=== PATIENT | female | born 1960 | race Caucasian/White ===

== ENCOUNTER 2018-09-09 10:45 | Observation (INO) | payer OTHER ==
--- NOTE | 2018-09-09 11:09 | CPEKG ---
Test Reason : OPEN Blood Pressure : / mmHG Vent. Rate : 056 BPM Atrial Rate : 054 BPM P-R Int : 166 ms QRS Dur : 082 ms QT Int : 463 ms P-R-T Axes : 055 030 031 degrees QTc Int : 447 ms Sinus rhythm Confirmed by Miguelangel Guerrier ([id number]) on 09/09/2018 11:09:19 AM Referred By: Confirmed By:Miguelangel Guerrier
--- NOTE | 2018-09-09 11:10 | EDPHY ---
H & P Stated Complaint: chest pressure - Personal History Current Tetanus/Diphtheria Vaccine: No Current Tetanus Diphtheria and Acellular Pertussis (TDAP): No - Medical/Surgical History Hx Asthma: No Hx Chronic Respiratory Disease: No Hx Diabetes: No Hx Cardiac Disease: No Hx Renal Disease: No Hx Cirrhosis: No Hx Alcoholism: No Hx HIV/AIDS: No Hx Splenectomy or Spleen Trauma: No Other PMH: HTN, osteoarthritis - Social History Smoking Status: Former smoker Time Seen by Provider: 09/09/18 11:00 HPI/ROS: CHIEF COMPLAINT: Chest pressure HISTORY OF PRESENT ILLNESS: 58-year-old female via private vehicle complaining of chest discomfort and pressure as well as dyspnea since 2:00 a.m. Pain continues now albeit less pronounced. Associated with dyspnea. No syncope or near syncope. No nausea. No diaphoresis. No peripheral edema or discoloration. 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 Nonsmoker. No drug use. No cocaine use. FAMILY HISTORY:Father age 56 of SC, mother with SC history, sister with multiple MIs starting at age 32 PHYSICAL EXAM (Prior to examination, patient consented to physical exam, hands were washed and my usual and customary physical exam procedures followed) 1) GENERAL: Well-developed, well-nourished, alert and oriented. Appears to be in no acute distress. 2) HEAD: Normocephalic, atraumatic 3) HEENT: Pupils equal, round, reactive to light bilaterally. Sclera anicteric. 4) NECK: Full range of motion, no meningeal signs. No carotid bruit 5) LUNGS: Clear auscultation bilaterally, no wheezes, no rhonchi, no retractions. 6) HEART: Regular rate and rhythm, no murmur, no heave, no gallop. 7) ABDOMEN: No guarding, no rebound, no focal tenderness, negative McBurney's, negative Dee's, negative Rovsing's, negative peritoneal sign, 8) MUSCULOSKELETAL: Moving all extremities, no focal areas of tenderness, no obvious trauma. No peripheral edema or discoloration. Negative Homans no palpable cord 9) BACK: No CVA tenderness, no midline vertebral tenderness, no fluctuance, no step-off, no obvious trauma, no visual or palpable abnormality. 10) SKIN: No rash, no petechiae. 11) Psychiatric: Patient is oriented X 3, there is no agitation. DIFFERENTIAL DIAGNOSIS: In no particular order, including but not limited to myocardial ischemia, pulmonary embolus, chest wall pain, pleural inflammation and pulmonary infectious causes. (Luciano Samuel) Constitutional: Initial Vital Signs Temperature (C) 36.7 C 09/09/18 10:51 Heart Rate 63 09/09/18 10:51 Respiratory Rate 16 09/09/18 10:51 Blood Pressure 183/80 H 09/09/18 10:51 O2 Sat (%) 96 09/09/18 10:51 O2 Delivery Mode Room Air Allergies/Adverse Reactions: aspirin Allergy (Verified 09/09/18 11:25) Other-Enter Comments Home Medications: Medication Instructions Recorded Cholecalciferol Vit D3 [Vitamin D3 1,000 units PO DAILY 09/09/18 (*)] Herbals/Supplements -Info Only 1 ea PO DAILY 09/09/18 Ibuprofen [Motrin (*)] 200 - 600 mg PO DAILY PRN 09/09/18 Levothyroxine [Synthroid 75 mcg 75 mcg PO DAILY06 09/09/18 (*)] Losartan Potassium [Cozaar 50 mg 50 mg PO DAILY 09/09/18 (*)] Multivitamins [Multivitamin (*)] 1 each PO DAILY 09/09/18 Medical Decision Making - Diagnostics Imaging Results: Imaging Impressions Chest X-Ray 09/09/18 11:00 Impression: Nothing acute identified. There is evidence of atherosclerosis. ED Course/Re-evaluation: Patient was re-evaluated with serial examinations. Negative troponin, normal sinus EKG. Significant family history of cardiac disease including sister with 1st SC in her 30s, father of SC in early to mid 50s. Family history is concerning. Recommended admission to hospitalist for cardiac evaluation and rule out. Patient is agreeable with this. Patient also seen exam by Dr. Miguelangel Guerrier. 11:19 a.m.: Consultation with hospitalist, admit to Dr Rivero (Luciano Samuel Debbie) Differential Diagnosis: Differential diagnosis considered for chest pain including but not limited to myocardial ischemia, aortic dissection, pericarditis, pulmonary embolus, chest wall pain, pleural inflammation and pulmonary infectious causes. (Miguelangel Guerrier) Other Provider: PHYSICIAN DOCUMENTATION: The patient was evaluated and managed by the Physician Electron Gun Inspector and myself. I have reviewed the chart and agree with the findings and plan of care as documented. In addition, I examined the patient myself at 1130. History confirmed as chest pain with family history of coronary disease including sister with SC in her 30s. Physical findings as follows: No peripheral edema. Initial EKG and troponin are negative, admission for risk stratification specially given significant family history. No aspirin, listed as allergy. I am the secondary supervising physician. (Miguelangel Guerrier) - Data Points Laboratory Results: Laboratory Results 09/09/18 11:13 09/09/18 11:13 09/09/18 09/09/18 09/09/18 11:17 11:13 11:13 WBC RBC Hgb Hct MCV MCH MCHC RDW Plt Count MPV Neut % (Auto) Lymph % (Auto) Lewis % (Auto) Eos % (Auto) Baso % (Auto) Nucleat RBC Rel Count Absolute Neuts (auto) Absolute Lymphs (auto) Absolute Monos (auto) Absolute Eos (auto) Absolute Basos (auto) Absolute Nucleated RBC Immature Gran % Immature Gran # D-Dimer < 0.27 ug/mLFEU ug/mLFEU (0.00-0.50) Sodium Potassium Chloride Carbon Dioxide Anion Gap BUN Creatinine Estimated GFR Glucose Calcium POC Troponin I 0.00 ng/mL ng/mL (0.00-0.08) Triglycerides 109 mg/dL mg/dL (35-135) Cholesterol 192 mg/dL mg/dL (140-220) Cholesterol Risk Factr 0.4 (0.2-1.0) LDL Cholesterol, Calc 68 mg/dL L mg/dL (80-100) LDL Risk Factor 0.4 (0.2-1.0) VLDL Cholesterol 22 mg/dL mg/dL (8-25) Non-HDL Cholesterol 90 mg/dL mg/dL (90-129) HDL Cholesterol 102 mg/dL H mg/dL (40-85) LDL/HDL Ratio 0.67 RATIO L RATIO (1.00-3.22) Cholesterol/HDL Ratio 1.88 RATIO RATIO (1.00-4.44) 09/09/18 09/09/18 11:13 11:13 WBC 6.37 10^3/uL 10^3/uL (3.80-9.50) RBC 4.75 10^6/uL 10^6/uL (4.18-5.33) Hgb 13.6 g/dL g/dL (12.6-16.3) Hct 40.1 % % (38.0-47.0) MCV 84.4 fL fL (81.5-99.8) MCH 28.6 pg pg (27.9-34.1) MCHC 33.9 g/dL g/dL (32.4-36.7) RDW 13.9 % % (11.5-15.2) Plt Count 232 10^3/uL 10^3/uL (150-400) MPV 11.5 fL fL (8.7-11.7) Neut % (Auto) 48.5 % % (39.3-74.2) Lymph % (Auto) 40.8 % % (15.0-45.0) Lewis % (Auto) 9.4 % % (4.5-13.0) Eos % (Auto) 0.8 % % (0.6-7.6) Baso % (Auto) 0.3 % % (0.3-1.7) Nucleat RBC Rel Count 0.0 % % (0.0-0.2) Absolute Neuts (auto) 3.09 10^3/uL 10^3/uL (1.70-6.50) Absolute Lymphs (auto) 2.60 10^3/uL 10^3/uL (1.00-3.00) Absolute Monos (auto) 0.60 10^3/uL 10^3/uL (0.30-0.80) Absolute Eos (auto) 0.05 10^3/uL 10^3/uL (0.03-0.40) Absolute Basos (auto) 0.02 10^3/uL 10^3/uL (0.02-0.10) Absolute Nucleated RBC 0.00 10^3/uL 10^3/uL (0-0.01) Immature Gran % 0.2 % % (0.0-1.1) Immature Gran # 0.01 10^3/uL 10^3/uL (0.00-0.10) D-Dimer Sodium 140 mEq/L mEq/L (135-145) Potassium 4.1 mEq/L mEq/L (3.3-5.0) Chloride 110 mEq/L mEq/L (97-110) Carbon Dioxide 20 mEq/l L mEq/l (22-31) Anion Gap 10 mEq/L mEq/L (6-14) BUN 18 mg/dL mg/dL (7-23) Creatinine 0.9 mg/dL mg/dL (0.6-1.0) Estimated GFR > 60 Glucose 99 mg/dL mg/dL (70-100) Calcium 9.8 mg/dL mg/dL (8.5-10.4) POC Troponin I Triglycerides Cholesterol Cholesterol Risk Factr LDL Cholesterol, Calc LDL Risk Factor VLDL Cholesterol Non-HDL Cholesterol HDL Cholesterol LDL/HDL Ratio Cholesterol/HDL Ratio Medications Given: Nitroglycerin (Nitrostat) 0.4 mg SL Q5M PRN PRN Reason: Chest Pain Stop: 03/08/19 13:37 Last Admin: 09/09/18 13:44 Dose: 0.4 mg Discontinued Medications Morphine Sulfate (Morphine) 4 mg IVP EDNOW ONE Stop: 09/09/18 12:16 Last Admin: 09/09/18 12:22 Dose: 4 mg Point of Care Test Results: Chemistry 09/09/18 11:17 POC Troponin I 0.00 ng/mL ng/mL (0.00-0.08) Departure - Departure Disposition: [facility] Inpatient Acute Clinical Impression: Chest pain Qualifiers: Chest pain type: unspecified Qualified Code(s): R07.9 - Chest pain, unspecified Condition: Good
[2018-09-09 11:23] LABS: PLATELET COUNT 232 10^3/uL (150-400)
[2018-09-09] MEDS ORDERED: NITROGLYCERIN 0.4 MG BTL SL PRN (13:38)
[2018-09-09] MEDS ORDERED: KETOROLAC 30 MG/1 ML SDV IVP PRN (13:48)
--- NOTE | 2018-09-09 13:52 | PDGENHP ---
History and Physical - Chief Complaint Chest pain - History of Present Illness 58 y/o female with history of HTN, OA, and hypothyroidism presents with mid- sternal chest pressure that radiates to the neck. She has not felt the sensation before and is concerned considering her family history is significant for MIs, CAD, and valve disorders. She describes the pressure as an uncomfortable "fluttering" feeling that woke her from her sleep this morning around 2:00am. Her sister, who has had MIs and stent placements, urged her to go to the ER. Denies SOB, N/V, numbness/tingling, vision changes, headache, weakness. She endorses constant chest pressure with an intensity of 3/10, nothing alleviates nor aggravates it. 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 Past Medical/Surgical History 1. HTN 2. OA 3. Hypothyroidism 4. Cervical CA (age 22) Family History 1. Father of ND at 56 y/o 2. Mother of valve problems/ND 3. Sister multiple ND and stent placement 4. Brother with coronary disease/Pacemaker History Information - Allergies/Home Medication List Allergies/Adverse Reactions: aspirin Allergy (Verified 09/09/18 11:25) Other-Enter Comments Home Medications: Cholecalciferol Vit D3 [Vitamin D3 (*)] 1,000 units PO DAILY 09/09/18 [Last Taken Unknown] Herbals/Supplements -Info Only 1 ea PO DAILY 09/09/18 [Last Taken Unknown] Ibuprofen [Motrin (*)] 200 - 600 mg PO DAILY PRN 09/09/18 [Last Taken 09/08/18 21:00 600mg] Levothyroxine [Synthroid 75 mcg (*)] 75 mcg PO DAILY06 09/09/18 [Last Taken 06/19] Losartan Potassium [Cozaar 50 mg (*)] 50 mg PO DAILY 09/09/18 [Last Taken ] Multivitamins [Multivitamin (*)] 1 each PO DAILY 09/09/18 [Last Taken Unknown] I have personally reviewed and updated: family history, medical history, social history, surgical history Past Medical History: See HPI List - Surgical History Additional surgical history: See HPI list - Family History Additional family history: See HPI list - Social History Smoking Status: Former smoker (Smoked for 38 years at least a pack-2 packs/day; quit 10 years ago) Alcohol Use: Rarely Drug Use: None Additional social history: Lives in [facility] [place] with ; 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 ) EENMT: Reports: other (Bilateral neck discomfort) Cardiac: Reports: chest pain, lightheadedness Respiratory: Reports: no symptoms Gastrointestinal: Reports: no symptoms Genitourinary: Reports: no symptoms Muscolosketal: Reports: no symptoms Skin: Reports: no symptoms Neurological: Reports: anxiety (Anxious considering extensive cardiac history with family) Hematologic/Lymphatic: Reports: no symptoms Immunologic/Allergy: Reports: other (See allergy list. Aspirin is not a anaphylaxis reaction; causes her to have "the shakes.") Physical Exam Physical Exam: Lab data and Imaging reviewed: D-Dimer: Negative 1st Troponin: Negative EK ventricular BMP, SR CXR: NO acute changes. Temp Pulse Resp BP Pulse Ox 36.3 C 60 14 181/103 H 93 09/09/18 12:35 09/09/18 12:35 09/09/18 12:35 09/09/18 12:35 09/09/18 12:35 Constitutional: no apparent distress, appears nourished, not in pain Eyes: PERRL, anicteric sclera, EOMI Ears, Nose, Mouth, Throat: moist mucous membranes, hearing normal, ears appear normal, no oral mucosal ulcers Cardiovascular: regular rate and rhythym, no murmur, rub, or gallop, other ( Elevated blood pressure), No edema Peripheral Pulses: 2+: dorsalis-pedis (R) (Radial 2+), dorsalis-pedis (L) ( Radial 2+) Respiratory: no respiratory distress, no rales or rhonchi, clear to auscultation Gastrointestinal: normoactive bowel sounds, soft, non-tender abdomen, no palpable masses Genitourinary: no bladder fullness, no bladder tenderness Skin: warm, normal color, no rashes or abrasions, no fluctuance, no induration, No mottled Musculoskeletal: full muscle strength, no muscle tenderness, normal joint ROM, no joint effusions Neurologic: AAOx3, sensation intact bilaterally, CN II-XII Intact Psychiatric: interacting appropriately, not anxious, not encephalopathic, thought process linear Lymph, Heme, Immunologic: no cervical LAD, no supraclavicular LAD Lab Data & Imaging Review 09/09/18 11:13 09/09/18 11:13 WBC 6.37 10^3/uL (3.80-9.50) 09/09/18 11:13 RBC 4.75 10^6/uL (4.18-5.33) 09/09/18 11:13 Hgb 13.6 g/dL (12.6-16.3) 09/09/18 11:13 Hct 40.1 % (38.0-47.0) 09/09/18 11:13 MCV 84.4 fL (81.5-99.8) 09/09/18 11:13 MCH 28.6 pg (27.9-34.1) 09/09/18 11:13 MCHC 33.9 g/dL (32.4-36.7) 09/09/18 11:13 RDW 13.9 % (11.5-15.2) 09/09/18 11:13 Plt Count 232 10^3/uL (150-400) 09/09/18 11:13 MPV 11.5 fL (8.7-11.7) 09/09/18 11:13 Neut % (Auto) 48.5 % (39.3-74.2) 09/09/18 11:13 Lymph % (Auto) 40.8 % (15.0-45.0) 09/09/18 11:13 [place] % (Auto) 9.4 % (4.5-13.0) 09/09/18 11:13 Eos % (Auto) 0.8 % (0.6-7.6) 09/09/18 11:13 Baso % (Auto) 0.3 % (0.3-1.7) 09/09/18 11:13 Nucleat RBC Rel Count 0.0 % (0.0-0.2) 09/09/18 11:13 Absolute Neuts (auto) 3.09 10^3/uL (1.70-6.50) 09/09/18 11:13 Absolute Lymphs (auto) 2.60 10^3/uL (1.00-3.00) 09/09/18 11:13 Absolute Monos (auto) 0.60 10^3/uL (0.30-0.80) 09/09/18 11:13 Absolute Eos (auto) 0.05 10^3/uL (0.03-0.40) 09/09/18 11:13 Absolute Basos (auto) 0.02 10^3/uL (0.02-0.10) 09/09/18 11:13 Absolute Nucleated RBC 0.00 10^3/uL (0-0.01) 09/09/18 11:13 Immature Gran % 0.2 % (0.0-1.1) 09/09/18 11:13 Immature Gran # 0.01 10^3/uL (0.00-0.10) 09/09/18 11:13 D-Dimer < 0.27 ug/mLFEU (0.00-0.50) 09/09/18 11:13 Sodium 140 mEq/L (135-145) 09/09/18 11:13 Potassium 4.1 mEq/L (3.3-5.0) 09/09/18 11:13 Chloride 110 mEq/L (97-110) 09/09/18 11:13 Carbon Dioxide 20 mEq/l (22-31) L 09/09/18 11:13 Anion Gap 10 mEq/L (6-14) 09/09/18 11:13 BUN 18 mg/dL (7-23) 09/09/18 11:13 Creatinine 0.9 mg/dL (0.6-1.0) 09/09/18 11:13 Estimated GFR > 60 09/09/18 11:13 Glucose 99 mg/dL (70-100) 09/09/18 11:13 Calcium 9.8 mg/dL (8.5-10.4) 09/09/18 11:13 POC Troponin I 0.00 ng/mL (0.00-0.08) 09/09/18 11:17 Triglycerides 109 mg/dL (35-135) 09/09/18 11:13 Cholesterol 192 mg/dL (140-220) 09/09/18 11:13 Cholesterol Risk Factr 0.4 (0.2-1.0) 09/09/18 11:13 LDL Cholesterol, Calc 68 mg/dL (80-100) L 09/09/18 11:13 LDL Risk Factor 0.4 (0.2-1.0) 09/09/18 11:13 VLDL Cholesterol 22 mg/dL (8-25) 09/09/18 11:13 Non-HDL Cholesterol 90 mg/dL (90-129) 09/09/18 11:13 HDL Cholesterol 102 mg/dL (40-85) H 09/09/18 11:13 LDL/HDL Ratio 0.67 RATIO (1.00-3.22) L 09/09/18 11:13 Cholesterol/HDL Ratio 1.88 RATIO (1.00-4.44) 09/09/18 11:13 Visualized and Interpreted Chest x-ray results: Yes Chest X-Ray results: no infiltrate, normal Visualized and Interpreted EKG results: Yes EKG Interpretation: Positive for: normal sinsus rhythm Assessment & Plan Plan: 58 y/o female with history of HTN, OA, and hypothyroidism presents with mid- sternal chest pressure that radiates to the neck. Her significant family history of cardiac-related events and diseases is concerning. More concerning is the fact she is still experiencing this chest discomfort that began this morning. Differential diagnosis: ACS, ND, angina. 1. Chest pains: Heart score is 4 (highly suspicious, age 58 y/o, 2 risk factors ), she continues to experience the discomfort and her blood pressure is elevated (last reading 181/103) -Initiate Nitroglycerin, Toradol; see if this alleviates her chest discomfort and reduces her blood pressure. -Re-assess pain; if chest pain still present, consider CTA and cardiology consult -Possible stress test -Echo Limited -Cycle EKGs -Cycle trops -Lipid panel -Tele monitoring 2. Hypertension: continue to monitor closely. May continue Losartan. 3. Hypothyroid: may continue home medications Diet: NPO VTE ppx: SCDs Code: Full Dispo: Admit to obs
[2018-09-09] MEDS ORDERED: ONDANSETRON 4 MG/2 ML VIAL IVP PRN (13:53)
[2018-09-09] MEDS ORDERED: ACETAMINOPHEN 325 MG TAB PO PRN (13:53)
[2018-09-09] MEDS ORDERED: IOPAMIDOL (ISOVUE 370) 100 ML BTL IV ONE (15:20)
--- NOTE | 2018-09-09 16:03 | ECHO ---
[email or web address] [address] [address] Main: [phone] Fax: Transthoracic Echocardiogram Name: DAVID ROSS MR#: [id number] Study Date: 09/09/2018 Study Time: 02:04 PM Date of : 1960 Age: 58 year(s) Height: 167.6 cm (66 in.) Weight: 73.48 kg (162 lb.) BSA: 1.83 m2 Gender: Female Examination: Echo Indication: Chest Pain, persistent Image Quality: Adequate Contrast: Requested by: Leeann Rivero BP: 158 mmHg/90 mmHg Heart Rate: Rhythm: Indication: Chest Pain, persistent Procedure Staff Hedge Fund Accountant: Marla Castañeda RD Reading Physician: Reginald Arias MD Requesting Provider: Conclusions: Normal size left ventricle. Normal global systolic LV function. EF is 61 %. The mitral valve is normal in appearance and function. Mild mitral valve regurgitation is present. The aortic valve is tri-leaflet. There is no significant aortic valve regurgitation. No aortic valve stenosis is present. The pulmonary artery pressure is normal. No old studies for comparison. Measurements: Chambers Valvular Assessment AV/MV Valvular Assessment TV/PV Normal Normal Normal Name Value Range Name Value Range Name Value Range Ao Charmaine (2D): 2.3 cm (1.4 cm-2.6 AV Vmax: 1.36 m/s (1 m/s-1.7 TR Vmax: 2.21 mm/s ( - ) cm) m/s) TR PGmax: 20 mmHg ( - ) IVSd (2D): 0.9 cm (0.6 cm-1.1 AV maxP mmHg ( - ) syst. PAP: 25 mmHg ( - ) cm) AV meanP mmHg ( - ) PV Vmax: 1.00 m/s (0.6 m/s-0.9 LVDd (2D): 3.7 cm (3.9 cm-5.3 DEONNA (VTI): 1.7 cm ( - ) m/s) cm) MV E Vmax: 0.93 m/s ( - ) PV PGmax: 4 mmHg ( - ) LVDs (2D): 2.4 cm (2.1 cm-4 MV A Vmax: 0.72 m/s ( - ) cm) MV E/A: 1.29 ( - ) LVPWd (2D): 0.9 cm ( - ) MV PHT: 0.065 s ( - ) LVOTd 1.8 cm 1.8 cm mm MVA (PHT): 3.4 s ( - ) LVEF (MOD4): 61 % (>=55 %) RVDd(2D): 3.0 cm (1.9 cm-3.8 cmmm) Continued Measurements: Patient: DAVID ROSS Study Date: 09/09/2018 Page 1 of 2 02:04 PM Chambers Valvular Assessment AV/MV Valvular Assessment TV/PV Name Value Name Value Name Value LADs: 3.0 cm MV DecTime: 218 m/s CVP (est.): 5 mmHg LADs Lon.2 cm MV E' Septal: 0.09 m/s LA Area: 11.3 cm2 MV E/E' Septal: 9.90 LA Volume: 28 ml MV E/E' Lateral: 8.80 LA Volume Index: 15.3 ml/m2 Additional Vessels Name Value Ao Ascendin.8 cm Findings: Left Ventricle: Normal size left ventricle. No LV hypertrophy. Normal global systolic LV function. EF is 61 %. No regional wall motion abnormality. Normal diastolic LV function. Right Ventricle: Normal size right ventricle. Normal RV function. Left Atrium: The left atrium is normal in size. Right Atrium: The right atrium is normal in size. Mitral Valve: The mitral valve is normal in appearance and function. Mild mitral valve regurgitation is present. No mitral stenosis is present. Aortic Valve: The aortic valve is tri-leaflet. There is no significant aortic valve regurgitation. No aortic valve stenosis is present. Tricuspid Valve: The tricuspid valve is normal in appearance and function. Mild to moderate tricuspid valve regurgitation. The pulmonary artery pressure is normal. Right ventricular systolic pressure measures 25mmHg. Pulmonic Valve: The pulmonic valve is normal in appearance and function. Trivial pulmonic valve regurgitation. Aorta: The aorta is normal. Normal size aortic root measuring 2.3 cm. Normal size ascending aorta measuring 2.8 cm. IVC: The IVC is normal sized. Pericardium: No pericardial effusion. No pleural effusion. (No Signature Object) Patient: DAVID ROSS Study Date: 09/09/2018 Page 2 of 2 02:04 PM [id number]
--- NOTE | 2018-09-09 18:49 | GCON ---
CARDIOLOGY CONSULTATION REFERRING PHYSICIAN: Leeann Rivero MD INDICATION FOR CARDIOLOGY CONSULTATION: Chest pressure, patient was significant family history of coronary artery disease at early onstage. HISTORY OF PRESENT ILLNESS: The patient is a 58-year-old female. She is not usually followed by Cardiology. She has significant past history of hypertension, previous smoker, reported mild carotid artery disease by [facility] and reports a significant family history of coronary artery disease at early onstage. The patient reports that she had been in her normal state of health, until around 2 a.m., which she reports she had a "butterfly flying in her chest". She does report she has had previous palpitations before, and felt like this was not similar. When pressed to describe it, she did report a mild pressure. She did feel at its worst, that it did radiate into her neck and throat, rating 7/10. She did report associated symptoms of lightheadedness and shortness of breath, but denied of any nausea or diaphoresis. She dealt with the pressure for most of the night, but then she called her older sister and was urged to come to the emergency department for further evaluation. Upon arrival, she did undergo electrocardiogram, which noted to be sinus rhythm, normal axis, with no significant ST or T-wave abnormalities suggesting of ischemia. She did have laboratory studies drawn, which it was noted that her D-dimer was less than 0.27 , her troponin was less than 0.00. In the ER, she was given sublingual nitroglycerin, and which reported no significant change in symptoms. She was also given IV morphine, which again reporting no symptoms. She was admitted to the hospital services. She was given Toradol, and does report that with all the medications, she has noted a mild improvement in symptoms, but reports now of only having a 0.5/10 pressure sensation in her chest, with no other associated symptoms. She denies of any recent fevers, chills, or night sweats. Reports no orthopnea, PND, edema, light headedness, near-syncope, or syncopal events. Reports no symptoms suggestive of TIA or CVA. Reports no bleeding issues. Cardiac risk factors include previous smoker, hypertension, peripheral vascular disease, and family history of early onset of CAD. PAST MEDICAL HISTORY: Includes hypertension, previous smoker, reported mild carotid artery disease by [facility], hypothyroidism, osteoarthritis, and cervical CA. FAMILY HISTORY: Patient reports father at age 56 of a myocardial infarction, mother of valvular heart problems and myocardial infarction. Her older sister, 9 years older, has history of SD at age 30, diabetes, and multiple stents. Patient reporting oldest sister at age 61 of an SD. Brother with coronary artery disease and pacemaker implantation. SOCIAL HISTORY: Patient works for an [employer], she is . She is a previous smoker, she reports she does not drink any alcohol, denies any illicit drugs, she has 1 adult son. ALLERGIES: Patient reports allergy to aspirin. HOME MEDICATIONS: Include Synthroid 75 mg p.o. daily, ibuprofen 200 to 600 mg p.o. daily p.r.n., losartan 50 mg p.o. daily, herbs and supplements p.o. daily, multivitamin 1 tablet orally daily, and vitamin D 1000 units p.o. daily. REVIEW OF SYSTEMS: A 10-point review of systems done on the patient, all negative except as mentioned above. PHYSICAL EXAMINATION: GENERAL APPEARANCE: Medium built, elderly female. She is alert and oriented to person, place, time, and situation. Appears to be under no acute distress. VITAL SIGNS: Current vital signs are blood pressure of 132/104, heart rate of 54 sinus rhythm on the monitor, respirations 14 saturating 92% on room air, temperature of 36.4 degrees Celsius. HEENT: Head is normocephalic. Lips and tongue are pink and moist with no signs of cyanosis. Conjunctivae pink. NECK: Trachea is midline, +2 carotid pulses bilateral. No auscultated bruits, no jugular vein distention. RESPIRATORY: Lungs are clear to auscultation. No rhonchi, rales or wheezes. No accessory muscle use. No intercostal muscle retraction noted. CARDIAC: Regular rate, regular rhythm, S1, S2, no S3, S4, gallops, rubs or murmurs noted. ABDOMEN: Soft, nontender, bowel sounds x4 quadrants, no organomegaly, no palpable masses. SKIN: [place], warm, dry, no cyanosis, no clubbing, no peripheral edema. VASCULAR: +2 carotids bilateral, +2 radials bilateral, +2 dorsal pedal and posterior tibial pulses bilateral. LABORATORY STUDIES: WBC 6.37, hemoglobin 13.6, hematocrit of 40.1, platelet count 232. D-dimer less than 0.27. Sodium 140, potassium 4.1, chloride 110s, BUN 18, creatinine 0.9, glucose 99, calcium 9.8, troponin 0.00. Triglycerides 109, total cholesterol of 192, LDL 68, HDL of 102. Repeated troponin level this afternoon at 3 o'clock was less than 0.012. STUDIES: Electrocardiogram as mentioned above. Chest x-ray showing no acute cardiopulmonary process, there is evidence of atherosclerosis. Echocardiogram noting normal LV systolic function, EF of 61%, no wall motion abnormalities. Mild MR, no pericardial effusion. RSVP 25 mmHg. CTA of chest negative for aortic dissection, no central pulmonary embolisms, noted to have a right pericardial cyst measuring up to 5.2 cm. Moderate to severe emphysema with pleura basis nodule measuring up to 4 mm. ASSESSMENT AND PLAN: 1. Chest pain: The patient reports a chest fluttering/pressure sensation in her midsternal, starting at 2 a.m. this morning, does report at worst radiation into her neck and arms. [place] nitroglycerin, morphine and Toradol may have helped but did not take total symptoms away. She has had 2 negative troponins. Her electrocardiogram shows no significant EKG changes at this time. Echocardiogram noting normal LV systolic function with no wall motion abnormalities. At this time, the patient reports pain is completely done at the end of my interview. We will plan on monitoring her overnight, cycling troponins. If she has any further episodes of chest pressure, with her multiple cardiac risk factors, I do think it would be advisable for her to undergo cardiac catheterization. We will make her n.p.o. after midnight. If she does not, then we can consider having her do an ETT MPI study in a.m. Will continue on aspirin therapy. Would also like to start her on Protonix. 2. 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 I have reviewed her CT scan films with both Dr. Arias and Dr. Dyson of CT surgery. It is how this is contributing to her symptoms. Per Dr. Dyson, the cyst could have been there for multiple years and is more than likely benign. 3. Hypertension: Blood pressure is fairly well controlled, she will continue on home dose of losartan. We will continue to monitor. 4. History of peripheral vascular disease: Patient reporting of having a limited carotid ultrasound which noted mild plaque approximately 2-3 years ago. No bruits noted on physical examination. The patient's LDL was 68 today. Depending on further cardiac treatment, consideration of starting her on low- dose statin therapy. Thank you for this consultation. We will be glad to follow along with you. /[id number]/MODL MTDD
--- NOTE | 2018-09-09 19:19 | HOSPPROG ---
Hospitalist Progress Note Assessment/Plan: Patient admitted with chest pain. She has a very strong family history. Discussed case with Estela Romero RECYCLING DIRECTOR and agree with plan. Patient seen and examined by myself. There was some concern regarding our inability to get patient CP free despite IV morphine, SL NTG and IV toradol. CTA chest was negative for dissection. Cardiology consulted. During their visit she finally became CP free. Troponins remain negative. Per cardiology, NPO after midnight. If she has recurrent CP overnight, consider cath in am given high risk. If no recurrence of pain then stress testing in am. Objective: Vital Signs Temp Pulse Resp BP Pulse Ox 36.4 C 54 L 14 132/104 H 92 09/09/18 15:18 09/09/18 15:18 09/09/18 15:18 09/09/18 15:18 09/09/18 15:18 09/08/18 09/09/18 09/10/18 05:59 05:59 05:59 Intake Total 200 Balance 200 EKG viewed, my personal interpretation is - NSR, no ischemic ST changes CTA chest - no dissection, positive for pericardial cysts case d/w Demetri Sulaiman regarding persistent CP despite morphine, SL NTG and IV toradol Laboratory Tests 09/09/18 09/09/18 09/09/18 11:13 11:13 14:59 D-Dimer < 0.27 Troponin I < 0.012 LDL Cholesterol, Calc 68 L - Physical Exam Constitutional: no apparent distress, appears nourished, not in pain Cardiovascular: regular rate and rhythym, no murmur, rub, or gallop Respiratory: no respiratory distress, no rales or rhonchi, clear to auscultation Gastrointestinal: normoactive bowel sounds, soft, non-tender abdomen, no palpable masses Skin: no rashes or abrasions, no fluctuance, no induration Neurologic: AAOx3, sensation intact bilaterally Psychiatric: interacting appropriately, not anxious, not encephalopathic, thought process linear ICD10 Worksheet Patient Problems: Problems Problem Status Onset Chest pain Acute
[2018-09-09] MEDS: PANTOPRAZOLE SODIUM 40 MG TAB PO SCH (20:21)
[2018-09-10] MEDS ORDERED: LEVOTHYROXINE 75 MCG TAB PO SCH (06:00)
[2018-09-10] MEDS ORDERED: DIAZEPAM 5 MG TAB PO ONE (08:22)
[2018-09-10] MEDS ORDERED: ASPIRIN EC 325 MG TAB PO ONE (08:22)
[2018-09-10] MEDS ORDERED: TEMAZEPAM 15 MG CAP PO PRN (08:22)
[2018-09-10] MEDS ORDERED: diphenhydrAMINE 25 MG CAP PO ONE (08:22)
[2018-09-10] MEDS ORDERED: FAMOTIDINE 20 MG TAB PO ONE (08:22)
[2018-09-10] MEDS ORDERED: NS 1,000 ML IV SCH (08:30)
[2018-09-10] MEDS: PANTOPRAZOLE SODIUM 40 MG TAB PO SCH (08:57)
[2018-09-10] MEDS ORDERED: LOSARTAN POTASSIUM 50 MG TAB PO SCH (09:00)
[2018-09-10 09:37] LABS: INR 1.01 (0.83-1.16); PROTIME(PATIENT) 13.5 SEC (12.0-15.0)
[2018-09-10] MEDS ORDERED: LIDOCAINE 1% 300 MG/30 ML SDV ONE (10:48)
[2018-09-10] MEDS ORDERED: fentaNYL 100 MCG/2 ML INJ ONE (10:48)
[2018-09-10] MEDS ORDERED: MIDAZOLAM 2 MG/2 ML VIAL ONE (10:48)
[2018-09-10] MEDS ORDERED: IOPAMIDOL (ISOVUE-370) 150 ML BTL IV ONE (10:49)
--- NOTE | 2018-09-10 11:01 | PDPROPOC ---
Sedation Plan of Care Sedation Plan of Care: vital signs stable, mental status noted, patient educated of risks, benefits, alternatives, patient can tolerate sedation ASA Classification: ASA 2 Planned drugs: fentanyl, midazolam Mallampati Score: Class 2 Mallampati Reference Image: Patient passed 3-3-2 rule?: Yes
--- NOTE | 2018-09-10 14:00 | ASMTCMCOM ---
CM Note CM Note Notes: Pt is a 58 y/o female admitted for chest pian. Pt went to the veterinary laboratory diagnostician today. Pt will most likely d/c independent when medically stable. No therapies ordered at this time. CM available for changes. Plan: Independent Date Signed: 09/10/2018 01:59 PM Electronically Signed By:MELISSA Dash
[2018-09-10 15:28] VITALS: BP 116/80
--- NOTE | 2018-09-10 16:15 | CPIP ---
DATE OF PROCEDURE: 09/09/2018 PROCEDURES: 1. Coronary angiography. 2. Left ventriculography. INDICATION: Acute coronary syndrome with negative troponin. ACCESS: Patient was prepped and draped in sterile fashion. 1% lidocaine was used to anesthetize the right inguinal region. A 6-Hungarian introducer sheath was placed selectively into the right common fe moral artery via modified Seldinger technique. CORONARY ANGIOGRAPHY: A 6-Hungarian JL4 was advanced to the left main coronary artery and images obtain ed. The left main coronary artery bifurcated into an LAD and circumflex coronary arteries. The left main coronary artery appears normal. The left anterior descending coronary artery gives rise to 1 p rominent diagonal branch, as well as several smaller diagonal branches. The left anterior descending coronary artery has mild luminal irregularities throughout the mid vessel. There was no stenosis gr eater than 15%. The diagonal branches appear free of any significant disease. The circumflex de la o ry artery is a large vessel but is nondominant. Circumflex coronary artery has a single discrete 20% stenosis in the proximal segment. The remainder of the vessel is free of any significant disease. A 6-Hungarian JR4 is advanced to the right coronary artery and images obtained. The right coronary yolette ry is dominant. The right coronary artery is relatively small. The right coronary artery has mild l uminal irregularities throughout. There is no stenosis greater than 10% to 15% LEFT VENTRICULOGRAPHY: A 6-Hungarian pigtail catheter is advanced in the left ventricle and images obta ined. Left ventricle is normal in size. There is normal systolic function with an estimated ejectio n fraction of 60%. COMPLICATIONS: None. CONCLUSIONS: 1. Mild coronary artery disease without flow limitation. 2. Normal left ventricular size and systolic function. 3. Plan is for medical management. /[id number]/MODL
--- NOTE | 2018-09-10 18:40 | GDS ---
DISCHARGE DIAGNOSES: 1. Chest pain. Probable musculoskeletal. 2. Negative cardiac catheterization except for nonobstructive coronary artery disease. 3. This is a very strong family history for coronary artery disease. 4. Hypertension. HISTORY: The patient is a 58-year-old female, with a very strong family history of coronary artery d isease with her father dying of an [place] at age 56. Her sister has had multiple MIs and stents placed i n her 30s. She presented with chest pain radiating to her neck. This chest pain was continuous and we had a difficult time getting her chest pain relieved. Cardiology was consulted. Her troponins an d EKGs remained negative. However given her persistence of chest pain, she was offered cardiac precious terization, which she desired. Dr. Arias did the cardiac catheterization which showed mild coronary artery disease, but no flow limiting lesions. She is recommended for more aggressive medical manage ment and so aspirin and statin therapy were added to her regimen. DISCHARGE MEDICATIONS: Please see computer record for full detailed list. New medications: 1. Aspirin 81 mg p.o. daily. 2. Atorvastatin 10 mg p.o. daily. ADDITIONAL DISCHARGE INSTRUCTIONS: 1. Standard groin precautions post cardiac catheterization. 2. Follow up with Dr. Arias and Demetri Hilario, appointment for September 22 at 11:30 a.m. Patient seen and examined by me on the day of discharge. /[id number]/MODL
[2018-09-11] MEDS ORDERED: ASPIRIN EC 81 MG TAB PO SCH (09:00)
[2018-09-11] MEDS ORDERED: ATORVASTATIN CALCIUM 10 MG TAB PO SCH (09:00)
== END 2018-09-10 17:20 | disposition home or self-care (01) ==
LOC: F2W 12:39
PROVIDERS: ADMIT Internal Medicine; ATTEND Internal Medicine
DX: R07.89 Other chest pain (principal); I25.10 Atherosclerotic heart disease of native coronary artery without angina pectoris; I10 Essential (primary) hypertension; Z82.49 Family history of ischemic heart disease and other diseases of the circulatory system; E03.9 Hypothyroidism, unspecified; M19.90 Unspecified osteoarthritis, unspecified site; Z87.891 Personal history of nicotine dependence; Z85.41 Personal history of malignant neoplasm of cervix uteri; Z88.6 Allergy status to analgesic agent
CPT/HCPCS: 71046; 71275; 93005; 93306; 93458; 96374; 96375; 99285; G0378; 84484-PO; J1644; J1885; J2250; J2270; J3010; Q9967